=== PATIENT | female | born 1940 | race Caucasian/White ===

== ENCOUNTER → 2018-06-01 | Outpatient (CLI) | payer MEDICARE ==
[~2018-06-01] MED LIST: ATOR10TA9 PO; LISI5TAB7 PO; TRIA1CAP3 PO
[2018-06-01 12:09] LABS: BASOPHILS # (AUTO) 0.02 x10^3/uL (0-0.1); BASOPHILS % (AUTO) 0 % (0-1); EOSINOPHILS % (AUTO) 1 % (1-7); LYMPHOCYTES # (AUTO) 2.28 x10^3/uL (1-3.4); LYMPHOCYTES % (AUTO) 34 % (22-44); MD NO; MEAN CORPUSCULAR HEMOGLOBIN 30.3 pg (27.0-34.8); MEAN CORPUSCULAR HGB CONC 33.4 g/dL (32.4-35.8); MEAN CORPUSCULAR VOLUME 90.7 fL (80-100); MEAN PLATELET VOLUME 7.9 fL (7.4-10.4); MONOCYTES # (AUTO) 0.63 x10^3/uL (0.2-0.8); MONOCYTES % (AUTO) 9 % (2-9); NEUTROPHILS # (AUTO) 3.71 x10^3/uL (1.8-6.8); NEUTROPHILS % (AUTO) 55 % (42-75); PLATELET COUNT 299 x10^3/uL (130-400); RED CELL DISTRIBUTION WIDTH 14.1 % (9.6-15.2)
[2018-06-01 12:18] LABS: INTERNATIONAL NORMALIZED RATIO 0.97 (0.93-1.1)
[2018-06-01 12:19] LABS: ALANINE AMINOTRANSFERASE 20 U/L (12-78); ALBUMIN 4.1 g/dL (3.4-5.0); ANION GAP 5 mmol/L (5-15); CALCIUM 10.7 mg/dL (8.5-10.1); CHLORIDE 106 mmol/L (98-107); CREATININE 0.86 mg/dL (0.55-1.02)
[2018-06-01 12:21] LABS: ALKALINE PHOSPHATASE 113 U/L (45-117); BILIRUBIN,TOTAL 1.1 mg/dL (0.2-1.0); TOTAL PROTEIN 7.9 g/dL (6.4-8.2)
[2018-06-01 13:02] LABS: HEMOGLOBIN A1C 5.6 % (4.2-6.3)
== END | disposition home or self-care (01) ==
LOC: STAR 10:59
PROVIDERS: ATTEND Orthopaedic Surgery
DX: Z01.818 Encounter for other preprocedural examination (principal); M16.12 Unilateral primary osteoarthritis, left hip; M25.552 Pain in left hip
CPT/HCPCS: 36415; 80053; 83036; 85025; 85610; 85730; 87081; 87147; 93005

== ENCOUNTER 2018-06-15 06:53 | Inpatient (IN) | payer MEDICARE ==
[~2018-06-15] VITALS: Ht 157.5 cm; Wt 85.8 kg
[~2018-06-15 06:53] MED LIST changes: +EPINEPHRINE 1 MG/ML, 1ML ONE; +KETOROLAC 60 MG/2 ML ONE; +SODIUM CHLORIDE 0.9% 100 ML ONE; +TRANEXAMIC ACID 100 MG/ML, 10ML ONE; +VANCOMYCIN 1,000 MG ONE
[2018-06-15] MEDS ORDERED: LACTATED RINGERS 1,000 ML IV SCH (07:12)
[2018-06-15] MEDS ORDERED: ROPIvacaine/PF 0.5%, 30 ML ONE ×2 (07:27→09:54)
[2018-06-15 07:28] VITALS: BP 114/68
[2018-06-15] MEDS ORDERED: ACETAMINOPHEN 500 MG TABLET PO ONE (07:30)
[2018-06-15] MEDS ORDERED: GABAPENTIN 300 MG CAPSULE PO ONE (07:30)
[2018-06-15] MEDS ORDERED: FENTANYL PF 100 MCG/2ML IV PRN (08:00)
[2018-06-15] MEDS ORDERED: MEPERIDINE/PF 25MG/0.5ML IVPush PRN ×2 (08:00→11:00)
[2018-06-15] MEDS ORDERED: DIPHENHYDRAMINE 50 MG/ML, 1ML IVPush PRN (08:00)
[2018-06-15] MEDS ORDERED: LABETALOL 5MG/ML, 20ML IV PRN ×2 (08:00→11:00)
[2018-06-15] MEDS ORDERED: hydrALAzine 20 MG/ML, 1ML IV PRN ×2 (08:00→11:00)
[2018-06-15] MEDS ORDERED: PROCHLORPERAZINE 5 MG/ML, 2ML IV PRN ×2 (08:00→11:00)
[2018-06-15] MEDS ORDERED: HYDROmorphone 1 MG/ML, 1ML IV PRN ×2 (08:00→11:00)
[2018-06-15] MEDS ORDERED: OXYcodone 5 MG/5 ML ORAL.SOL UDC PO PRN ×2 (08:00→11:00)
[2018-06-15] MEDS ORDERED: SCOPOLAMINE PATCH, 1.5MG PATCH.TD72 TD ONE (08:30)
[2018-06-15] MEDS ORDERED: MAGNESIUM HYDROXIDE 8%, 30ML UDC PO PRN (08:30)
[2018-06-15] MEDS ORDERED: DIPHENHYDRAMINE 50 MG CAPSULE PO PRN (08:30)
[2018-06-15] MEDS ORDERED: SENNA/DOCUSATE TABLET PO PRN (08:30)
[2018-06-15] MEDS ORDERED: OXYcodone IR 5MG TABLET PO PRN (08:30)
[2018-06-15] MEDS ORDERED: ONDANSETRON 4 MG TABLET PO PRN (08:30)
[2018-06-15] MEDS ORDERED: ZOLPIDEM 5MG TABLET PO PRN (08:30)
[2018-06-15] MEDS ORDERED: BISACODYL 10 MG SUPP PR PRN (08:30)
[2018-06-15] MEDS ORDERED: HYDROcodone/APAP 5/325 TABLET PO PRN (08:30)
[2018-06-15] MEDS ORDERED: ACETAMINOPHEN 650 MG/20.3 ML UDC PO PRN (08:30)
[2018-06-15] MEDS ORDERED: CEFAZOLIN PMX 2GM/50ML 50 ML IVPB SCH (08:30)
[2018-06-15] MEDS ORDERED: ONDANSETRON 2MG/ML, 2ML IV PRN (08:30)
[2018-06-15] MEDS: LISINOPRIL 5 MG TABLET PO SCH (09:00)
[2018-06-15] MEDS: TRIAMTERENE-HCTZ 37.5/25 MG TABLET PO SCH (09:00)
[2018-06-15] MEDS: DOCUSATE 100 MG CAPSULE PO SCH (09:00)
[2018-06-15] MEDS ORDERED: FENTANYL PF 100 MCG/2ML ONE ×3 (09:14→12:22)
[2018-06-15] MEDS ORDERED: MIDAZOLAM 1 MG/ML, 2ML ONE (09:14)
[2018-06-15] MEDS ORDERED: KETOROLAC 60 MG/2 ML ONE (09:54)
[2018-06-15] MEDS ORDERED: VANCOMYCIN 1,000 MG ONE ×2 (09:54→10:16)
[2018-06-15] MEDS ORDERED: TRANEXAMIC ACID 100 MG/ML, 10ML ONE ×2 (09:54)
[2018-06-15] MEDS ORDERED: EPINEPHRINE 1 MG/ML, 1ML ONE (09:54)
[2018-06-15] MEDS ORDERED: LIDOCAINE-MPF 2% ,5ML ONE (10:41)
[2018-06-15] MEDS ORDERED: ROCURONIUM 10 MG/ML,10ML ONE (10:41)
[2018-06-15] MEDS ORDERED: METOPROLOL 1 MG/ML, 5ML IV PRN (11:00)
[2018-06-15] MEDS ORDERED: LORazepam 2 MG/ML, 1ML IVPush PRN (11:00)
[2018-06-15] MEDS ORDERED: ALBUTEROL SULFATE 2.5 MG/3 ML NPPB PRN (11:00)
[2018-06-15] MEDS ORDERED: MORPHINE SULFATE 4 MG/ML, 1ML IVPush PRN (11:00)
[2018-06-15] MEDS ORDERED: MIDAZOLAM 1 MG/ML, 2ML IV PRN (11:00)
[2018-06-15] MEDS ORDERED: SUCCINYLCHOLINE 20 MG/ML, 10ML ONE (11:23)
[2018-06-15] MEDS ORDERED: PROPOFOL 10 MG/ML, 20ML ONE (11:23)
[2018-06-15] MEDS ORDERED: EPHEDRINE 50 MG/ML, 1ML ONE (11:24)
[2018-06-15] MEDS ORDERED: CEFAZOLIN 1,000 MG ONE ×2 (11:24)
[2018-06-15] MEDS ORDERED: ONDANSETRON 2MG/ML, 2ML ONE (11:24)
[2018-06-15] MEDS ORDERED: DEXAMETHASONE 4 MG/ML, 1ML ONE ×2 (11:24)
[2018-06-15] MEDS ORDERED: OXYcodone 5 MG/5 ML ORAL.SOL UDC ONE (12:09)
[2018-06-15] MEDS: FENTANYL PF 100 MCG/2ML IV PRN ×5 (12:10→12:30)
[2018-06-15] MEDS ORDERED: DIAZEPAM 5 MG TABLET ONE (12:31)
[2018-06-15] MEDS ORDERED: MEPERIDINE/PF 50 MG/ML ONE (12:52)
[2018-06-15] MEDS ORDERED: DIAZEPAM 5 MG TABLET PO ONE (13:00)
[2018-06-15 13:55] VITALS: BP 100/54
[2018-06-15] MEDS ORDERED: SODIUM CHLORIDE 0.9% 1,000ML IVBOLUS ONE (16:00)
[2018-06-15] MEDS: NS + 20MEQ KCL 1,000 ML IV SCH ×2 (16:15→20:51)
[2018-06-15] MEDS: ASPIRIN 81 MG TABLET EC PO SCH (18:02)
[2018-06-15 18:38] VITALS: BP 107/57
[2018-06-15] MEDS ORDERED: ATORVASTATIN 10 MG TABLET PO SCH (21:00)
[2018-06-16] MEDS: CEFAZOLIN PMX 2GM/50ML 50 ML IV SCH ×2 (00:23→06:49)
[2018-06-16] MEDS: DOCUSATE 100 MG CAPSULE PO SCH ×2 (00:24→07:53)
[2018-06-16 00:41] VITALS: BP_SYST 88; BP_SYST 94; BP_DIAS 51; BP_DIAS 58
[2018-06-16 02:42] VITALS: BP 102/51
[2018-06-16] MEDS ORDERED: DEXAMETHASONE 4 MG/ML, 1ML IVPush SCH (06:00)
[2018-06-16] MEDS: ASPIRIN 81 MG TABLET EC PO SCH (06:49)
[2018-06-16] MEDS ORDERED: OXYC5CAP2 PO (07:43)
[2018-06-16] MEDS ORDERED: MELO7.5T31 PO (07:43)
[2018-06-16] MEDS ORDERED: TRAM50TA2 PO (07:43)
[2018-06-16 07:49] VITALS: BP 94/52
[2018-06-16] MEDS: LISINOPRIL 5 MG TABLET PO SCH (07:53)
[2018-06-16] MEDS: TRIAMTERENE-HCTZ 37.5/25 MG TABLET PO SCH (07:53)
[2018-06-16] MEDS: NS + 20MEQ KCL 1,000 ML IV SCH (09:21)
== END 2018-06-16 11:30 | disposition home or self-care (01) | DRG 470 ==
LOC: ORIP 06:53 → 4NOR 13:51
PROVIDERS: ADMIT Orthopaedic Surgery; ATTEND Orthopaedic Surgery
PROC: 0SRB06A Replacement of Left Hip Joint with Oxidized Zirconium on Polyethylene Synthetic Substitute, Uncemented, Open Approach (ICD-10-PCS; principal; 2018-06-15 10:00)
DX: M16.12 Unilateral primary osteoarthritis, left hip (principal); I10 Essential (primary) hypertension; E78.5 Hyperlipidemia, unspecified; Z72.0 Tobacco use
CPT/HCPCS: 36415; 72170; 76001; 85014; 85018; 86850; 86900; C1713; G0378; J0171; J0690; J1100; J1885; J2250; J2405; J2704; J2795; J3010; J3370; J3480; J3490; C1776; J0330; J7030; J7120